=== PATIENT | male | born 1985 | race Caucasian/White ===

== ENCOUNTER 2017-01-24 02:19 | Emergency (ER) | payer OTHER ==
[~2017-01-24] VITALS: Ht 157.5 cm; Wt 57.6 kg
[2017-01-24 02:25] VITALS: BP 140/67; PULSE 75; RESP 12; TEMP 97.7; O2SAT 99
--- NOTE | 2017-01-24 02:25 | NUR ---
Placed in room 04 . Placed on cardiac exercise specialist, blood pressure machine and pulse oximeter. To gown for exam. Side rails up. Report given to OBDULIO Ward.
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
--- NOTE | 2017-01-24 03:00 | NUR ---
[facility] at the bedside taking report from patient.
--- NOTE | 2017-01-24 03:05 | NUR ---
ER at bedside examining patient.
[2017-01-24 03:55] VITALS: BP 135/65; PULSE 72; RESP 12; TEMP 97.7; O2SAT 99
--- NOTE | 2017-01-24 03:55 | NUR ---
Patient given written and verbal discharge instructions and verbalizes understanding. ER MD discussed with patient the results and treatment provided. Patient in stable condition. ID arm band removed. Rx of Naprosyn given. Patient educated on pain management and to follow up with PMD. Pain Scale 0/10 . Opportunity for questions provided and answered.
== END 2017-01-24 03:55 | disposition home or self-care (01) ==
LOC: SED 02:19
DX: S83.92XA Sprain of unspecified site of left knee, initial encounter (principal); S83.91XA Sprain of unspecified site of right knee, initial encounter; V43.92XA Unspecified car occupant injured in collision with other type car in traffic accident, initial encounter; Y93.89 Activity, other specified; Y99.8 Other external cause status; Y92.89 Other specified places as the place of occurrence of the external cause
CPT/HCPCS: 99284